=== PATIENT | male | born 1965 | race Caucasian/White ===

== ENCOUNTER 2017-05-31 20:44 | Emergency (ER) | payer SELFPAY ==
[~2017-05-31] VITALS: Ht 175.3 cm; Wt 83.9 kg
[2017-05-31] MEDS ORDERED: ONDANSETRON HCL 4 MG/2 ML VIAL IV ONE (23:30)
[2017-05-31] MEDS ORDERED: MORPHINE SULFATE 8mg/ml INJ SDV IV ONE (23:30)
[2017-06-01 01:18] VITALS: BP 101/81
== END 2017-06-01 02:30 | disposition home or self-care (01) ==
LOC: ER 20:44
DX: Z04.1 Encounter for examination and observation following transport accident (principal); M54.9 Dorsalgia, unspecified; M25.511 Pain in right shoulder; F17.210 Nicotine dependence, cigarettes, uncomplicated
CPT/HCPCS: 70450; 72125; 72128; 72131; 73030; 96374; 96375; 99285; J2270; J2405

== ENCOUNTER 2022-05-23 20:03 | Emergency (ER) | payer MEDICAID ==
[~2022-05-23] VITALS: Ht 175.3 cm; Wt 95.5 kg
[2022-05-23] MEDS ORDERED: KETOROLAC TROMETH 60MG/2ML VIAL IM ONE (21:30)
[2022-05-23] MEDS ORDERED: cefTRIAXone SOD 1,000 MG VL IM ONE (21:30)
[2022-05-23] MEDS ORDERED: DexAMETHasone SOD PHOS 10MG/1ML VIAL INJ IM ONE (21:30)
[2022-05-23] MEDS ORDERED: IBUP800T26 PO (21:32)
[2022-05-23] MEDS ORDERED: ACET-1158 PO (21:32)
[2022-05-23] MEDS ORDERED: CEPH-510 PO (21:32)
[2022-05-23 21:38] VITALS: BP 152/101
== END 2022-05-24 00:54 | disposition home or self-care (01) ==
LOC: ER 20:03
DX: S10.96XA Insect bite of unspecified part of neck, initial encounter (principal); J04.0 Acute laryngitis; L08.9 Local infection of the skin and subcutaneous tissue, unspecified; F17.210 Nicotine dependence, cigarettes, uncomplicated; W57.XXXA Bitten or stung by nonvenomous insect and other nonvenomous arthropods, initial encounter; Y93.89 Activity, other specified; Y92.89 Other specified places as the place of occurrence of the external cause; Y99.8 Other external cause status
CPT/HCPCS: 96372; 99284; J0696; J1100; J1885

== ENCOUNTER 2023-09-13 11:19 | Emergency (ER) | payer SELFPAY ==
[~2023-09-13] VITALS: Ht 177.8 cm; Wt 91.9 kg
[~2023-09-13 11:19] MED LIST: ACET500T58 PO; CEPH-510 PO; IBUP-1455 PO
[2023-09-13 12:45] VITALS: BP 148/89; PULSE 89; RESP 18; TEMP 98; O2SAT 98
[2023-09-13] MEDS: LIDOCAINE VISCOUS 2% 15ML UD MT ONE (12:48)
[2023-09-13] MEDS ORDERED: CLIN1CAP70 PO (13:04)
[2023-09-13] MEDS ORDERED: LIDO2SOL26 MT (13:04)
== END 2023-09-13 13:08 | disposition home or self-care (01) ==
LOC: ER 11:19
DX: K12.1 Other forms of stomatitis (principal); F17.210 Nicotine dependence, cigarettes, uncomplicated; Z79.899 Other long term (current) drug therapy; Z79.1 Long term (current) use of non-steroidal anti-inflammatories (NSAID)

== ENCOUNTER 2024-02-02 23:32 | Emergency (ER) | payer SELFPAY ==
[~2024-02-02] VITALS: Ht 175.3 cm; Wt 97.2 kg
[~2024-02-02 23:32] MED LIST changes: +CLIN1CAP70 PO; +LIDO2SOL26 MT
[2024-02-02 23:45] VITALS: BP 146/107; PULSE 101; RESP 18; O2SAT 98
[2024-02-02] MEDS: TETANUS-DIPTH-ACEL PERTUSSIS 0.5ML SYR Tdap IM ONE (23:56)
--- NOTE | 2024-02-03 00:13 | ED.PDOC ---
HPI Comments 58-year-old male complaining of laceration to left forearm. States he was using a cutting wheel with the blade snapped hitting him in the left forearm. States he was wearing long sleeve shirt. He was able to see the blade bounced off his arm and away. Patient does admit to using methamphetamines tonight. Bleeding controlled upon arrival. Chief Complaint: Laceration Time Seen by MD: 23:41 Primary Care Provider: NONE Reviewed Notes: Nurses Notes Allergies: Coded Allergies: NO KNOWN ALLERGIES (Unverified , 06/10/10) Home Meds Active Scripts Lidocaine HCl (Mouth-Throat) (Lidocaine HCl Viscous) 2 % Sylvia, 10 ML MT TID, #100 ML Prov:WILI TAN 09/13/23 Clindamycin Hcl (Clindamycin Hcl) 300 Mg Cap, 300 MG PO QID for 8 Days, #32 CAP Prov:WILI TAN 09/13/23 Ibuprofen Micronized (Ibuprofen) 800 Mg Tab, 800 MG PO Q8HP PRN, #20 TAB Prov:TAL MARTINES PAC 05/23/22 Acetaminophen (Acetaminophen) 500 Mg Tab, 500 MG PO Q4HP PRN, #20 TAB Prov:TAL MARTINES PAC 05/23/22 Cephalexin ( Keflex 500) 500 Mg Cap, 1 CAP PO QID for 7 Days, #28 CAP Prov:TAL MARTINES PAC 05/23/22 Information Source: Patient Mode of Arrival: Ambulatory Severity: Mild Complexity: Simple Laceration Length (cm): 3 Past Medical History PAST MEDICAL HISTORY: Denies Surgical History: Denies all surgeries Family History Family History: Reviewed,noncontributory to illness Social History Smoker: Cigarettes, Greater Than 1 Pack/Day Alcohol: Denies ETOH Use Drugs: Denies Drug Use Lives In: Home Constitutional: denies: chills, diaphoresis, fatigue, fever, malaise, sweats, weakness, others EENTM: denies: blurred vision, double vision, ear bleeding, ear discharge, ear drainage, ear pain, ear ringing, eye pain, eye redness, hearing loss, mouth pain, mouth swelling, nasal discharge, nose bleeding, nose congestion, nose pain, photophobia, tearing, throat pain, throat swelling, voice changes, others Respiratory: denies: cough, hemoptysis, orthopnea, SOB at rest, shortness of breath, SOB with excertion, stridor, wheezing, others Cardiovascular: denies: chest pain, dizzy spells, diaphoresis, Dyspnea on exertion, edema, irregular heart beat, left arm pain, lightheadedness, palpitations, PND, syncope, others Gastrointestinal: denies: abdomen distended, abdominal pain, blood streaked bowels, constipated, diarrhea, dysphagia, difficulty swallowing, hematemesis, melena, nausea, poor appetite, poor fluid intake, rectal bleeding, rectal pain, vomiting, others Genitourinary: denies: burning, dysuria, flank pain, frequency, hematuria, incontinence, penile discharge, penile sore, pain, testicle pain, testicle swelling, urgency, others Neurological: denies: dizziness, fainting, headache, left sided numbness, left sided weakness, numbness, paresthesia, pre-existing deficit, right sided numbness, right sided weakness, seizure, speech problems, tingling, tremors, weakness, others Musculoskeletal: denies: back pain, gout, joint pain, joint swelling, muscle pain, muscle stiffness, neck pain, others Integumetry: reports: laceration (Left forearm); denies: bruises, change in c olor, change in hair/nails, dryness, lesions, lumps, rash, wounds, others Physical Exam General Appearance: No Apparent Distress, Normal HEENT: Normal ENT Inspection, Pharynx Normal, TMs Normal Neck: Full Range of Motion, Non-Tender, Normal, Normal Inspection Respiratory: Chest Non-Tender, Lungs Clear, No Accessory Muscle Use, No Respiratory Distress, Normal Breath Sounds Cardiovascular: No Edema, No JVD, No Murmur, No Gallop, Normal Peripheral Pulses, Regular Rate/Rhythm Breast Exam: Deferred Gastrointestinal: No Organomegaly, Non Tender, No Pulsatile Mass, Normal Bowel Sounds, Soft Genitalia: Deferred Pelvic: Deferred Rectal: Deferred Extremities: No calf tenderness, Normal capillary refill, Normal inspection, Normal range of motion, Non-tender, No pedal edema Musculoskeletal : Apperance: Normal Neurologic: Alert, recruiting consultant II-XII nml as Tested, No Motor Deficits, Normal Affect, Normal Mood, No Sensory Deficits Cerebellar Function: Normal Reflexes: Normal Skin: Dry, Lacerations (3 cm laceration noted on the left forearm. He had a midshaft. Clean approximate the edges. Into the adipose tissue.), Normal Color, Warm Lymphatic: No Adenopathy Was a procedure done? Was a procedure done?: Yes Sedation Sedation?: No Laceration Repair : Location Left forearm Length 3 cm Anesthetic: Lidocaine Laceration Repair Prep: Saline Laceration Repair Wound Comple: epidermis/dermis repair Laceration Repair: Nikky (5) Informed consent obtained: Yes Risks, benefits, and alternati: Yes Differential diagnosis Generic Laceration: Tendon Injury, Abrasion/Contusion, Laceration, Avulsion X-Ray, Labs, Meds, VS Vital Signs Date Time Temp Pulse Resp B/P (MAP) Pulse Ox O2 Delivery O2 Flow Rate FiO2 02/02/24 23:45 97.5 101 18 146/107 (120) 98 Current Medications Medications (Trade) Dose Ordered Sig/[place]asta Route Start Time Stop Time Status Last Admin Diphtheria/ Tetanus/Acell Pertussis (Boostrix T-Dap) 0.5 ml ONCE ONCE IM 02/02/24 23:45 02/02/24 23:46 DC 02/02/24 23:56 X-Ray, Labs, Meds, VS Comment Imaging: X-rays and CT scans were reviewed and interpreted by this provider, imaging shows no fractures and no pathological disease. Pending radiology review. Laboratory: Labs reviewed and interpreted by this provider. No significant abnormalities noted. Patient has prior medical visits reviewed. Med reconciliation performed Vital signs reviewed Time of 1ST Reevaluation: 00:13 Reevaluation 1ST: Improved Patient Education/Counseling: Diagnosis, Treatment, Need For Follow Up (Follow up in 7-10 days for staple removal.) Family Education/Counseling: Diagnosis Departure 1 Departure Time of Disposition: 00:12 Impression: Primary Impression: Forearm laceration Qualified Codes: S51.812A - Laceration without foreign body of left forearm, initial encounter Disposition: HOME / SELF CARE / HOMELESS Condition: Fair Discharged With: Self Comments Patient advised to follow up in 7-10 days for staple removal. Critical Care Note Critical Care Time?: No Stability Stability form required: No Heart Score Heart Score: Heart Score Response (Comments) Value History N/A 0 EKG N/A 0 Age N/A 0 Risk Factors N/A 0 Troponin N/A 0 Total 0 SHON CRUZ Feb 03, 2024 00:13
--- NOTE | 2024-02-03 04:44 | DVH ---
CLINICAL INDICATION: laceration TECHNIQUE: XY L FOREARM XRAY, 3 views Comparison: None FINDINGS/IMPRESSION: There is no evidence of acute fracture or dislocation. The visualized joint space is well maintained. The alignment is anatomical. There is no radiopaque foreign body.
== END 2024-02-03 01:11 | disposition home or self-care (01) ==
LOC: ER 23:32
DX: S51.812A Laceration without foreign body of left forearm, initial encounter (principal); F17.210 Nicotine dependence, cigarettes, uncomplicated; Z79.899 Other long term (current) drug therapy; W45.8XXA Other foreign body or object entering through skin, initial encounter; Y93.89 Activity, other specified; Y92.89 Other specified places as the place of occurrence of the external cause; Y99.8 Other external cause status
CPT/HCPCS: 12002; 73090; 90471; 90715

== ENCOUNTER 2024-02-14 | Emergency (ER) | payer MEDICAID ==
[~2024-02-14] VITALS: Ht 175.3 cm; Wt 97.2 kg
[2024-02-14 00:28] VITALS: BP 148/118; PULSE 87; RESP 16; O2SAT 97
[2024-02-14] MEDS ORDERED: AUG875T PO (02:25)
--- NOTE | 2024-02-14 02:26 | ED.PDOC ---
History of Present Illness(SKN HPI Comments 58-year-old male presents the ED chief complaint staple removal in the left forearm. Some 10 days ago had 5 nikky he notes still with pain, surrounding redness no noted drainage. Denies numbness weakness fever or chills. Chief Complaint: Suture Removal Time Seen by MD: 00:03 Primary Care Provider: NONE History of Present Illness: Nurses Notes, Medications, Allergies Allergies: Coded Allergies: NO KNOWN ALLERGIES (Unverified , 06/10/10) Home Meds Active Scripts Amoxicillin & Pot Clavulanate (AUGMENTIN TABLET) 875 Mg Tb, 1 TAB PO BID for 7 Days, #14 TAB Prov:AMARA PEÑA 02/14/24 Lidocaine HCl (Mouth-Throat) (Lidocaine HCl Viscous) 2 % Sylvia, 10 ML MT TID, #100 ML Prov:WILI TAN 09/13/23 Clindamycin Hcl (Clindamycin Hcl) 300 Mg Cap, 300 MG PO QID for 8 Days, #32 CAP Prov:WILI TAN 09/13/23 Ibuprofen Micronized (Ibuprofen) 800 Mg Tab, 800 MG PO Q8HP PRN, #20 TAB Prov:TAL MARTINES PAC 05/23/22 Acetaminophen (Acetaminophen) 500 Mg Tab, 500 MG PO Q4HP PRN, #20 TAB Prov:TAL MARTINES PAC 05/23/22 Cephalexin ( Keflex 500) 500 Mg Cap, 1 CAP PO QID for 7 Days, #28 CAP Prov:TAL MARTINES PAC 05/23/22 Information Source: Patient Mode of Arrival: Ambulatory Past Medical History PAST MEDICAL HISTORY: Denies Surgical History: Denies all surgeries Family History Family History: Reviewed,noncontributory to illness Social History Smoker: Cigarettes, Greater Than 1 Pack/Day Alcohol: Denies ETOH Use Drugs: Denies Drug Use Lives In: Home Constitutional: denies: chills, diaphoresis, fatigue, fever, malaise, sweats, weakness, others EENTM: denies: blurred vision, double vision, ear bleeding, ear discharge, ear drainage, ear pain, ear ringing, eye pain, eye redness, hearing loss, mouth pain, mouth swelling, nasal discharge, nose bleeding, nose congestion, nose pain, photophobia, tearing, throat pain, throat swelling, voice changes, others Respiratory: denies: cough, hemoptysis, orthopnea, SOB at rest, shortness of breath, SOB with excertion, stridor, wheezing, others Cardiovascular: denies: chest pain, dizzy spells, diaphoresis, Dyspnea on exertion, edema, irregular heart beat, left arm pain, lightheadedness, palpitations, PND, syncope, others Gastrointestinal: denies: abdomen distended, abdominal pain, blood streaked bowels, constipated, diarrhea, dysphagia, difficulty swallowing, hematemesis, melena, nausea, poor appetite, poor fluid intake, rectal bleeding, rectal pain, vomiting, others Genitourinary: denies: burning, dysuria, flank pain, frequency, hematuria, incontinence, penile discharge, penile sore, pain, testicle pain, testicle swelling, urgency, others Neurological: denies: dizziness, fainting, headache, left sided numbness, left sided weakness, numbness, paresthesia, pre-existing deficit, right sided numbness, right sided weakness, seizure, speech problems, tingling, tremors, weakness, others Musculoskeletal: denies: back pain, gout, joint pain, joint swelling, muscle pain, muscle stiffness, neck pain, others Integumetry: reports: wounds (Left forearm); denies: bruises, change in color, change in hair/nails, dryness, laceration, lesions, lumps, rash, others Allergic/Immunocompromised: denies: Difficulty Healing, Frequent Infections, Hives, Itching, others Hematologic/Lymphatic: denies: anemia, blood clots, easy bleeding, easy bruising, swollen glands, others Endocrine: denies: excessive hunger, excessive sweating, excessive thirst, excessive urination, flushing, intolerance to cold, intolerance to heat, unexplained weight gain, unexplained weight loss, others Psychiatric: denies: anxiety, bipolar disorder, depression, hopeless, panic disorder, schizophrenia, sleepless, suicidal, others Physical Exam General Appearance: No Apparent Distress, Normal HEENT: Pharynx Normal Neck: Full Range of Motion, Non-Tender Respiratory: Lungs Clear, No Respiratory Distress, Normal Breath Sounds Cardiovascular: No Murmur, Normal Peripheral Pulses, Regular Rate/Rhythm Breast Exam: Deferred Gastrointestinal: Non Tender, Soft Genitalia: Deferred Pelvic: Deferred Rectal: Deferred Extremities: Normal capillary refill, Normal inspection, Normal range of motion, Non-tender, No pedal edema Musculoskeletal : Apperance: Normal Neurologic: Alert, director records management II-XII nml as Tested, No Motor Deficits, Normal Affect, Normal Mood, No Sensory Deficits Cerebellar Function: Normal Reflexes: Normal Skin: Dry, Lacerations (Left forearm posterior distal aspect with 5 nikky intact with surrounding erythema and warmth noted scant amount of purulent white drainage. Streaking strength sensory motion intact positive radial pulse.), Normal Color, Warm Lymphatic: No Adenopathy Was a procedure done? Was a procedure done?: Yes Sedation Sedation?: No Informed consent obtained: Yes Other Procedure Procedure Staple removal forearm left Anesthetic None Success Nikky removed successfully minimal blood loss good approximation noted white purulent drainage and surrounding erythema with moderate tenderness on palpation Informed consent obtained: Yes Risks, benefits, and alternati: Yes Differential Diagnosis (INTG) Differential Diagnosis: Cellulitis X-Ray, Labs, Meds, VS Vital Signs Date Time Temp Pulse Resp B/P (MAP) Pulse Ox O2 Delivery O2 Flow Rate FiO2 02/14/24 00:28 98.8 87 16 148/118 (128) 97 X-Ray, Labs, Meds, VS Comment See Procedure note. Likely infected trial Augmentin twice daily x7 days. Patient follow up with his PCP in 2-3 days as necessary wound evaluation or return to the ER or urgent care. Advised to take Tylenol or Motrin [id number] as needed for pain per labeled dosing instructions ER return precautions given patient indicates understanding agrees with discharge plan of care. Time of 1ST Reevaluation: 02:26 Reevaluation 1ST: Improved Patient Education/Counseling: Diagnosis, Treatment, Prognosis, Need For Follow Up Family Education/Counseling: No Family Present Departure 1 Departure Time of Disposition: 02:25 Impression: Primary Impression: Removal of nikky Additional Impression: Wound infection Disposition: 01 HOME / SELF CARE / HOMELESS Condition: Stable e-Prescriptions Amoxicillin & Pot Clavulanate (AUGMENTIN TABLET) 875 Mg Tb 1 TAB PO BID for 7 Days, #14 TAB Prov: AMARA PEÑA 02/14/24 Discharged With: Self Critical Care Note Critical Care Time?: No Stability Stability form required: AMARA Farley Feb 14, 2024 02:26
== END 2024-02-14 02:40 | disposition home or self-care (01) ==
LOC: ER
DX: S51.812D Laceration without foreign body of left forearm, subsequent encounter (principal); L08.9 Local infection of the skin and subcutaneous tissue, unspecified; Z48.02 Encounter for removal of sutures; F17.210 Nicotine dependence, cigarettes, uncomplicated; Z79.1 Long term (current) use of non-steroidal anti-inflammatories (NSAID); Z79.2 Long term (current) use of antibiotics; Z79.899 Other long term (current) drug therapy; X58.XXXD Exposure to other specified factors, subsequent encounter